=== PATIENT | male | born 1955 | race African-American/Black ===

== ENCOUNTER → 2018-06-10 | Outpatient (CLI) | payer OTHER ==
[2018-06-10 15:46] LABS: ANION GAP 12 (5-19); BLOOD UREA NITROGEN 17 mg/dL (7-20); CALCIUM 9.7 mg/dL (8.4-10.2); CARBON DIOXIDE 28 mmol/L (22-30); CHLORIDE 103 mmol/L (98-107); GLUCOSE 66 mg/dL (75-110); POTASSIUM 3.9 mmol/L (3.6-5.0); SODIUM 143.4 mmol/L (137-145)
== END ==
LOC: OD 14:19
PROVIDERS: ATTEND Internal Medicine Nephrology
DX: E11.22 Type 2 diabetes mellitus with diabetic chronic kidney disease (principal); N18.3 Chronic kidney disease, stage 3 (moderate)
CPT/HCPCS: 36415; 80048; 83036